=== PATIENT | female | born 1950 | race Caucasian/White ===

== ENCOUNTER 2025-08-05 09:58 | Emergency (ER) | payer MEDICARE, SELFPAY ==
--- NOTE | ~2025-08-05 | CT_ITS ---
EXAMINATION: CT brain wo con DATE: 08/05/2025 11:22 INDICATION: Fall with head injury TECHNIQUE: Computed tomography (CT) of the head was performed without intravenous contrast. Sagittal and coronal reconstructions were performed. The mA was adjusted according to patient size. Iterative reconstruction technique was employed. The dose-length product was 447.35 mGy-cm. COMPARISON: None FINDINGS: Mild left periorbital and preseptal soft tissue swelling, likely posttraumatic contusion. Orbits appear otherwise normal with intact appearing globes and no post septal stranding. No fracture. No acute intracranial hemorrhage, acute infarction or abnormal extra axial fluid collection. There is mild scattered white matter hypoattenuation consistent with chronic small vessel ischemic disease. Ventricles are normal and symmetric. No mass/mass effect. The paranasal sinuses and mastoid air cells are normal. IMPRESSION: 1. Left periorbital and preseptal soft tissue swelling likely secondary to post traumatic contusion. No fracture or acute intracranial process. 2. Mild scattered nonspecific white matter hypoattenuation consistent with chronic small vessel ischemic disease. Reviewed, dictated and finalized at location A. ROPOLOGY LECTURER IMPRESSION: 1. Left periorbital and preseptal soft tissue swelling likely secondary to post traumatic contusion. No fracture or acute intracranial process. 2. 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
--- NOTE | ~2025-08-05 | CT_ITS ---
EXAMINATION: CT cervical spine wo con DATE: 08/05/2025 11:22 INDICATION: Head injury. TECHNIQUE: Computed tomography (CT) of the cervical spine was performed without intravenous contrast. Automated exposure control and iterative reconstruction technique were employed. The dose-length product was 447.35 mGy-cm. COMPARISON: None FINDINGS: C1 ring is ununited posteriorly, a normal variant. There is 9 degrees dextrocurvature of cervical spine. Vertebral body heights are normal. Intervertebral disc heights are normal. There is multilevel severe facet joint osteoarthritis. There is multilevel uncovertebral joint osteoarthritis, severe on the left at C4-C5 and C5-C6. There is multilevel mild neural foraminal stenosis on either side. There is mild central canal stenosis at C6-C7. IMPRESSION: 1. No fracture. 2. Mild cervical spondylosis. Reviewed, dictated and finalized at location E. BPM ARCHITECT
[2025-08-05 10:06] VITALS: BP 129/82; PULSE 67; RESP 20; TEMP 37; O2SAT 100
--- OUTSIDE RECORDS SUMMARY | 2025-08-05 10:23 | XMS_ITS | Data Portability ---
Author Organization [place] [facility], Main Office Address [address] [place] [address] Care Team Providers Care Superintendent Warehouse Name Role Phone PIERO SOSA Primary Care Provider PIERO SOSA Referring Provider [phone] Assessment Encounter Date Assessment Date Assessment LastModified by Organization Details LastModified Time 08/22/2023 08/22/2023 Patient has severe primary osteoarthritis left knee joint. At her request under sterile conditions I injected the patient's left knee joint in the office with 4 cc 0.5% bupivacaine and 20 mg of Kenalog. Patient tolerated the procedure well. We will see her back as needed she voiced understanding agrees above plan she will call for any further problems difficulties or questions. Not available 08/22/2023 10:27:47 11/21/2023 11/21/2023 The patient has severe primary osteoarthritis left knee joint as described. Under sterile conditions I injected the patient's left knee joint in the office with 4 cc 0.5% Marcaine and 20 mg of Kenalog. Patient tolerated the procedure well. I will see her back as needed we can do this again in 3 months if necessary she voiced understanding agrees above plan she will call for any further problems difficulties or questions. Not available 11/21/2023 10:46:43 02/07/2024 02/07/2024 The patient has severe primary osteoarthritis left knee joint as described under sterile conditions I injected the patient's left knee joint in the office with 4 cc of 0.5% Marcaine and 20 mg of Kenalog. Patient tolerated procedure well. I will see her back in 3 months if necessary she voiced understanding and agrees above plan she will call for any further problems difficulties or questions. Not available 02/07/2024 14:35:49 05/08/2024 05/08/2024 The patient has severe primary osteoarthritis left knee joint. She gets by with cortisone she is trying to avoid total knee arthroplasty for now. At her request under sterile conditions I injected the patient's left knee joint in the office with 4 cc of 0.5% bupivacaine and 20 mg of Kenalog. Patient tolerated procedure well. I will see her back again in 3 months if necessary for repeat cortisone injection. She gets by pretty well with cortisone. Her right knee is functioning well 16 years out status post total knee arthroplasty today's x-rays show no new issues with her right knee arthroplasty. I have advised her we should x-ray this every year or 2 to make sure it is maintaining its alignment. She voiced understanding agrees above plan she will call for any further problems difficulties or questions. Not available 05/08/2024 14:59:09 08/09/2024 08/09/2024 The patient has severe primary osteoarthritis left knee joint as described. Under sterile conditions I injected the patient's left knee joint in the office today with 4 cc 0.5% bupivacaine and 20 mg of Kenalog. Patient tolerated procedure well. I will see her back as needed we can do this again in 3 months if necessary. She voiced understanding and agree with the above plan she will continue with current conservative measures and call for any further problems difficulties or questions. Not available 08/09/2024 14:49:26 Plan of Treatment Reminders Order Date Submit Date Provider Last Modified By Organization Details Last Modified Time Details Appointments None recorded. Lab None recorded. Referral None recorded. Procedures injection/a spiration joint/bursa (PROC) 2024 025 [email or web address] In-Office Order, Internal Use Only DO Not Attach Compendium DO Not Attach Compendium, Do Not Delete/merge, [id number] 5 14:33:16 injection/a spiration joint/bursa (PROC) 2023 024 [email or web address] In-Office Order, Internal Use Only DO Not Attach Compendium DO Not Attach Compendium, Do Not Delete/merge, [id number] 14:41:32 injection/a spiration joint/bursa (PROC) - in office procedure, administere d by provider 2023 024 [email or web address] In-Office Order, Internal Use Only DO Not Attach Compendium DO Not Attach Compendium, Do Not Delete/merge, [id number] 4 14:12:13 injection/a spiration joint/bursa (PROC) - in office procedure, administere d by provider 2023 024 [email or web address] In-Office Order, Internal Use Only DO Not Attach Compendium DO Not Attach Compendium, Do Not Delete/merge, 4 10:28:19 injection/a spiration joint/bursa (PROC) 2023 024 [email or web address] In-Office Order, Internal Use Only DO Not Attach Compendium DO Not Attach Compendium, Do Not Delete/merge, 4 10:10:38 Surgeries None recorded. Imaging XR, knee 2023 [address] [facility] [place], [address] [facility] [address] [facility] [address], [place], [address], 4 16:18:33 Medication Orders bupivacaine HCl 0.5 % (5 mg/mL) injection solution 2024 [address]25 [address] [facility] [address], [place], [address], 5 14:50:02 Kenalog 10 mg/mL suspension for injection 2024 025 [address] [facility] [address], [address], [place], [address], 5 14:50:02 bupivacaine HCl 0.5 % (5 mg/mL) injection solution 2023 024 [address] [facility] [address], [address], [place], [address], 4 16:18:33 Kenalog 10 mg/mL suspension for injection 2023 024 [email or web address] [facility] [address], [address], [place], [address], 4 16:18:33 Marcaine (PF) 0.5 % (5 mg/mL) injection solution 2023 [email or web address] [facility] [address], [place], [address], 4 14:36:24 Kenalog 10 mg/mL suspension for injection [email or web address] [place] [address] Pharmacy [address], [address], [place], [address], 4 14:36:19 Marcaine (PF) 0.5 % (5 mg/mL) injection solution 2023 024 [email or web address] [facility] [address], [address], [place], [address], 4 14:36:24 Kenalog 10 mg/mL suspension for injection 2023 024 [email or web address] [facility] [address], [address], [place], [address], 4 14:36:19 bupivacaine HCl 0.5 % (5 mg/mL) injection solution 2023 024 [email or web address] [id number], [address] [place] [address], [address], 4 14:36:13 Kenalog 10 mg/mL suspension for injection 2023 024 [email or web address] [id number], [address], [place], [address], 4 14:36:19 Patient TargetsNo targets recorded. Patient InstructionsNo instructions recorded. Reason for Referral None Reported. Results Created Date Observation Date Name Description Value Unit Range Abnormal Flag Note LastModifiedBy Organization Detail LastModifiedTime 05/08/20 24 XR, knee No observ ation record ed. [email or web address] [facility] [place] [address], [place], [address], 05/08/2024 15:00:37 Result Notes None recorded. 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 Procedure Notes None recorded. Medical Equipment None Reported. Allergies Allergen ID Allergen Name Allergen Category Reaction Reaction Severity Criticality Documentation Date Start Date Code Code System Note Provider Name and Address Organization Details Recorded Time 7250 Product containin g penicilli n (product) medicatio n rash Not available Not available 10/06/2022 41361 8001 SNOMED Not Available [facility] 3 04:58:37 Medications Name Sig Start Date Stop Date Status Note LastModified by Organization Details LastModified Time prednisone 10 mg tablet 12/03 completed Not Available Not Available Not Available doxycycline hyclate 100 mg capsule TAKE 1 CAPSULE BY MOUTH TWICE DAILY FOR 7 DAYS 05/20 completed Not Available Not Available Not Available benzonatate 200 mg capsule TAKE 1 CAPSULE BY MOUTH THREE TIMES DAILY NEEDED FOR COUGH 05/08 completed Not Available Not Available Not Available bupivacaine HCl 0.5 % (5 mg/mL) injection solution Take 20 mg by injection route. 2024 active Not Available Not Available Not Avai lable prednisone 20 mg tablet TAKE 2 TABLETS BY MOUTH ONCE DAILY FOR 5 DAYS 05/08 completed Not Available Not Available Not Available promethazin e 6.25 mg-codeine 10 mg/5 mL syrup TAKE 1-2 TEASPOONF ULS (5-10 ML) BY MOUTH EVERY 6 HOURS NEEDED 12/03 completed Not Available Not Available Not Available Kenalog 10 mg/mL suspension for injection Take 20 mg by injection route. 2024 active NDC: 0003- 0494- 20 Not Available Not Available Not Available benzonatate 100 mg capsule TAKE 1 CAPSULE BY MOUTH THREE TIMES A DAY NEEDED FOR COUGH 08/16 completed Not Available Not Available Not Available Xylocaine 20 mg/mL (2 %) injection solution In office injection administe red by the provider 02/05 completed Not Available Not Available Not Available montelukast 10 mg tablet TAKE 1 TABLET BY MOUTH EVERY DAY AT NIGHT active Not Available Not Available No t Available codeine 10 mg-guaifene sin 100 mg/5 mL oral liquid TAKE 10ML BY MOUTH EVERY 6 HOURS NEEDED 12/03 completed Not Available Not Available Not Available levofloxaci n 500 mg tablet 02/28 completed Not Available Not Available Not Available Ventolin HFA 90 mcg/actuati on aerosol inhaler TAKE 2 PUFFS BY MOUTH EVERY 6 HOURS NEEDED FOR WHEEZE OR FOR SHORTNESS OF BREATH active Not Available Not Available No t Available Marcaine (PF) 0.5 % (5 mg/mL) injection solution Take 20 mg by injection route. 05/08 completed Not Available Not Available Not Available Systane (PF) 0.4 %-0.3 % eye drops in a dropperette active Not Available Not Available Not Available PreserVisio n AREDS active Not Available Not Available Not Available lidocaine (PF) 10 mg/mL (1 %) injection solution In office injection administe red by the provider 02/05 completed NDC: 0409- 4276- 17 Not Available Not Available Not Available lidocaine (PF) 5 mg/mL (0.5 %) injection solution In office injection administe red by the provider 08/16 completed Not Available Not Available Not Available Allergy Relief-D (cetirizine ) 5 mg-120 mg tablet,exte nded release TAKE 1 TABLET BY MOUTH IN THE MORNING FOR 10 DAYS 02/28 completed Not Available Not Available Not Available ropivacaine (PF) 5 mg/mL (0.5 %) injection solution in office 05/08 completed [facility] [phone] -[phone]- [phone] Not Available Not Available Not Available BinaxNOW COVID-19 Ag Self Test kit USE DIRECTED 05/20 completed Not Available Not Available Not Available Paxlovid 300 mg (150 mg x 2)-100 mg tablets in a dose pack PLEASE SEE ATTACHED FOR DETAILED DIRECTION S 08/16 completed Not Available Not Available Not Available Centrum Adult 50 Plus active Not Available Not Available Not Available Vitals Date Recorded Body height Body mass index (BMI) Body weight Provider Name and Address Organization Details Last Updated DateTime 08/09/2024 167.64 cm 43.6 kg/m2 550873.94 g [employer] Shuame 08/09/2024 14:31:14 Date Recorded Body height Body mass index (BMI) Body weight Provider Name and Address Organization Details Last Updated DateTime 08/22/2023 160.02 cm 47.8 kg/m2 944019.94 g [employer], Shuame 08/22/2023 10:09:08 Date Recorded Body height Body mass index (BMI) Body weight Provider Name and Address Organization Details Last Updated DateTime 11/21/2023 160.02 cm 47.8 kg/m2 183148.94 g Evy Crystal [employer] 11/21/2023 10:26:35 Date Recorded Body height Body mass index (BMI) Body weight Provider Name and Address Organization Details Last Updated DateTime 02/07/2024 167.64 cm 42 kg/m2 987037.02 g [employer], 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 12/03/2020 [id number] Information not available 10/06/2022 Sex: Unknown Functional Status Question Answer Note LastModified by Organizat ion Details LastModified Time What is your level of alcohol consumption? Occasional [id number] Information not available 10/06/2022 Mental Status None recorded. Family History Relationship Description Onset Age of this Age Resolved Age Notes LastModified by Organization Details LastModified Time Father Family history of malignant neoplasm [id number] Not available 10/06/2022 04:42:18 Medical History Condition Response BLINDNESS N KIDNEY STONES N MRSA N CARPAL TUNNEL SYNDROME N LUNG DISEASE/DISORDER N HISTORY OF DRUG ABUSE N RADIATION / CHEMOTHERAPY N COPD N SPORTS INJURY N ANKLE PAIN N BLOOD DISEASES N SCHIZOPHRENIA N SHINGLES N BOWEL PROBLEMS N SHOULDER PAIN N DEPRESSION (INCLUDING POST ) N STROKE/TIA N KNEE PAIN N ULCERS N BENIGN PROSTATIC HYPERPLASIA N OBESITY N GERD/NAUSEA N ANEURYSM N URINARY/BLADDER/KIDNEY PROBLEMS N CORONARY ARTERY DISEASE (CAD) N ADDICTION CONCERNS N USE OF BLOOD THINNERS N SKIN PROBLEMS N EMPHYSEMA N MUSCLE,JOINT OR BONE PROBLEMS N DVT N STOMACH ULCERS N BLOOD CLOTS N USE OF NSAIDS N CONCUSSION OR SPINAL TRAUMA N NEUROPATHY N AIDS/HIV N FRACTURES N ELBOW PAIN N HYPERTENSION N TOURETTE'S N ANXIETY DISORDER N Metal allergy N BLOOD TRANSFUSION N ANEMIA/BLOOD DISORDER N BIPOLAR DISORDER N BRONCHITIS N OSTEOARTHRITIS N TUBERCULOSIS N FOOT PROBLEM N HEART VALVE DISORDERS N ALLERGIES/HAYFEVER N SOFT TISSUE INJURY N INFECTIOUS DISEASE N HEART ARRHYTHMIA N INSOMNIA N RHEUMATOID ARTHRITIS N HIGH CHOLESTEROL / HYPERLIPIDEMIA N EDEMA N CHRONIC PAIN SYNDROME N CAROTID BLOCKAGE N BACK / NECK PROBLEMS N HAVE YOU BEEN HOSPITALIZED OR SEEN IN [facility] ER IN THE PAST YEAR ? N BURSITIS N HERNIATED DISC N DIALYSIS N FIBROMYALGIA N OSTEOPOROSIS N ARTHRITIS Y NO SIGNIFICANT PAST MEDICAL HISTORY N PERIPHERAL NEUROPATHY N DIABETES, TYPE N HEARTBURN / REFLUX N HEPATITIS / LIVER DISEASE N GOUT N SLEEP DISORDER N ALZHEIMER'S DISEASE N HERPES N SEIZURES/EPILEPSY N HEADACHES/MIGRAINES N VASCULAR DISEASE N HIP PAIN N Blood Disorder N DIZZINESS N HEAD TRAUMA OR INJURY N HEART DISEASE/HEART PROBLEMS N MULTIPLE SCLEROSIS N CARDIAC ARRHYTHMIA N CANCER: SPECIFY N ANESTHESIA COMPLICATIONS N ATRIAL FIBRILLATION N AUTOIMMUNE DISEASE N Gynecological HistoryNo gynecological history recorded. Obstetrics History GPAL:G 0 P 0 0 0 0 Past Encounters Encounter ID Performer Location Encounter Start Date Encounter Closed Date Diagnosis/Indication Diagnosis SNOMED-CT Code Diagnosis ICD10 Code Diagnosis IMO Codes Diagnosis Note [id number] Elías Broussard MD [facility] [place] [address] [facility] [address] [facility] [address] [place] [address] 12/03/2020 00:00:00 12/03/2020 11:28:20 [id number] Elías Broussard MD [facility] [place] [place] [address] [facility] [address] [place] [address] 03/20/2021 00:00:00 03/20/2021 14:56:59 [id number] Elías Broussard MD [facility] [place] [place] [address] [place] [address] 07/08/2021 00:00:00 07/08/2021 10:03:27 [id number] Elías Broussard MD [facility] [place] [place] [address] [place] [address] 10/28/2021 00:00:00 10/28/2021 16:05:21 [id number] Elías Broussard MD [facility] [place] [place] [address] [place] [address] 02/05/2022 00:00:00 02/05/2022 11:35:43 [id number] Elías Broussard MD [facility] [place] [place] [address] [place] [address] 05/12/2022 00:00:00 05/12/2022 12:05:22 [id number] MD PAPA Milner[facility] [place] [address] [place] [address] 08/16/2022 00:00:00 08/16/2022 15:17:29 [id number] Elías Broussard MD [facility] [place] [place] [address] [place] [address] 11/15/2022 14:43:05 11/15/2022 15:51:56 Osteoarthritis of left knee joint 3637718922 88008 M17.12 [id number] Elías Broussard MD [facility] [place] [address] [place] [address] 02/14/2023 14:21:40 02/14/2023 17:55:18 Osteoarthritis of left knee joint 3791045163 86860 M17.12 [id number] Elías Broussard MD [facility] [place] [address] [place] [address] 05/20/2023 10:22:56 05/20/2023 11:09:40 Osteoarthritis of left knee joint 6033420791 46181 M17.12 [id number] Elías Broussard MD [facility] [place] [address] [place] [address] 08/22/2023 10:05:13 08/22/2023 10:28:18 Osteoarthritis of left knee joint 8855156784 72865 M17.12 [id number] Mario Reagan MD [facility] [place] [address] [place] [address] 11/21/2023 10:20:59 11/21/2023 10:49:34 Osteoarthritis of left knee joint 7516322838 47781 M17.12 Osteoarthritis 492530657 M17.12 [id number] Mario Reagan MD [facility] [place] [address] [place] [address] 02/07/2024 14:03:56 02/07/2024 15:06:07 Osteoarthritis of left knee joint 3992181497 71855 M17.12 Pain of le ft knee joint 5204468431 05411 M25.562 History of right total knee replacement 8105480264 067243 Z96.262 [id number] Mario Reagan MD [facility] [place] [address] [place] [address] 05/08/2024 14:19:26 05/08/2024 14:56:44 Osteoarthritis of left knee joint 9111556642 68832 M17.12 Pain of le ft knee joint 3106872872 98283 M25.562 History of right total knee replacement 3712467695 641905 Z96.667 [id number] MD LINO Shoemaker[facility] [place] [address] [place] [address] 08/09/2024 14:28:12 08/09/2024 14:57:27 Osteoarthritis of left knee joint 6808807914 15190 M17.12 Pain of le ft knee joint 6784750256 92889 M25.562 Health Concerns Section Related Observation LastModified by Organization Detai ls LastModified Time None Recorded Concern Status LastModified by Organization Details LastModified Time None Recorded Advance Directives Directive None Recorded Payers Insurance Date Sequence Insurance Name Policy Number Policy English Covered Member ID English Member ID Guarantor Name 08/09/2024 1 [place] Tejal Arzola [id number] Tejal Arzola 08/08/2024 2 BCBS-ID:ALVIN [facility] [facility] PLAN F (MEDICARE SUPPLEMENT) [id number] Tejal Arzola [id number] Tejal Arzola Notes Date Note Type Note Provider Name and Address Organization Details Recorded Time 08/22/2023 text/html Patient returns complaining of left knee pain. She has chronic primary osteoarthritis she comes in every 3 months for cortisone injections these gave her very good relief for most of the 3 months. She has iuje-fq-tfpi severe lateral osteoarthritis in the knee joint also lacks extension chronically. Denies any new trauma or injury no new symptoms or complaints no erythema effusion or signs of infection she comes in today requesting repeat cortisone injection left knee. Her right knee has been in about 20 years and then looks good and is functioning well for her. TERRI Claudio [address] [facility], [place], [address], [facility] 08/22/2023 10:28:00 11/21/2023 text/html Patient returns with left knee pain she comes in every 3 months for cortisone injections. Despite her severe osteoarthritis she does very well with conservative measures she has not interested in total knee arthroplasty until the shots stop working for her. They last almost exactly 3 months the past few days her knee pain has been about a 6 on a scale 1-10 she has been very busy more active with a nice or whether this is aggravating her left knee. She does have valgus deformity and wwcq-tn-qtfd changes lateral compartment. She would like another shot of cortisone today. Denies any new trauma or injury no new symptoms or complaints no erythema effusion or signs of infection. TERRI Claudio [address], [place], [address], [employer] [facility] [employer] 11/21/2023 10:46:54 02/07/2024 text/html Patient returns for recheck of her left knee she has severe primary osteoarthritis with wkcx-ow-qoyx changes in the lateral compartment with valgus deformity. She has had her right knee replaced she is very pleased with this she is trying to get by with conservative measures on the left knee she states shot of cortisone gave her nearly 3 months of relief every time. It has been 3 months since her last injection she would like another 1 today. Denies any new problems with the knee no effusion or swelling no erythema heat or other signs of infection. TERRI Claudio [address], [place], [address], [employer] [facility] [employer] 02/07/2024 14:36:12 05/08/2024 text/html patient returns for recheck of her left knee. She has severe primary osteoarthritis with injh-vt-pjdl changes lateral compartment we are getting new updated x-rays today it has been more than a year since her last x-rays. She comes in every few months for cortisone injections denies any new problems with the knee the shot of cortisone gave her about 3 months relief lately her knee pain has really started to flare up again. She knows that at some point she is going to need total knee arthroplasty she is trying to put this off for awhile she has had a previous right total knee arthroplasty done 16 years ago and is very pleased with this it is functioning well for her. We will get updated x-rays of that knee as well today to make sure everything looks good with her implant. She denies any new trauma or injury no erythema effusion or signs of infection. New past medical history sheet was reviewed and signed on the intake sheet of today's date drug allergies current medications family social history previous surgical history 10 point review of systems was reviewed and discussed in detail today with the patient. TERRI Claudio [address], [address], [place], [address], [employer] 05/08/2024 15:14:58 08/09/2024 text/html the patient returns requesting a cortisone injection into the left knee it has been 3 months since her last cortisone injection it worked very well for her. She has severe primary osteoarthritis with ukvx-ca-bkos changes lateral compartment and mild valgus deformity. She lacks about 10 of extension and limps because her knee pain bothers her. X-rays done 3 months ago show krif-fk-mfst changes lateral compartment and significant narrowing of the patellofemoral articulation as well. She has a right total knee arthroplasty done about 14 years ago and states this is doing well for her no problems here. She denies any new problems with the left knee no trauma or injury no effusion or swelling. TERRI Claudio [address], [place], [address], [employer] 08/09/2024 14:49:49 OBGyn Episode No OBEpisode recorded.
--- OUTSIDE RECORDS SUMMARY | 2025-08-05 10:23 | XMS_ITS | Encounter Summary ---
Author Organization [facility] Healthcare Address [address] [place] [address] Care Team Providers Care Drier Belt Conveyor Name Role Phone Karrie Garcia MD Primary Care Provider Encounter Details Date Type Department Care Team (Late st Contact Info) Description 06/11/2025 Results Follow-Up [facility] Primary Care [address] [place] [phone] Karrie Garcia MD [address] [place] [phone] Hemoglobin A1c, Lipid panel, Comprehensive metabolic panel, Additional followed-up results: 3 Social History Tobacco Use Types Packs/Day Years Used Date Smoking Tobacco: Never AUDIT-C Answer Date Recorded Q1: How often do you have a drink containing alc ohol? 2-4 times a month 06/02/2023 Q2: How many drinks containi ng alcohol do you have on a typical day when you are drinking? 1 or 2 06/02/2023 Q3: How often do you have si x or more drinks on one occasion? 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
--- OUTSIDE RECORDS SUMMARY | 2025-08-05 10:23 | XMS_ITS | Clinical Summary ---
Author Organization [facility] Address [facility] [place] [address] Care Team Providers Care Programmer Developer Name Role Phone Unavailable Primary Care Provider Unavailabl e Social History Tobacco Use Types Packs/Day Years Used Date Smoking Tobacco: Never Assessed Comments Unknown Sex and Gender Information Value Date Recorded Sex Assigned at Not on file Legal Sex Female 6:25 PM CDT Gender Identity Not on file Sexual Orientation Not on file Last Filed Vital Signs Vital Sign Reading Time Taken Comments Blood Pressure 120/64 02/05/2013 11:37 AM CDT Pulse 81 02/05/2013 11:37 AM CDT Temperature - - Respiratory Rate - - Oxygen Saturation - - Inhaled Oxygen Concentration - - Weight 133.8 kg (295 lb) 02/05/2013 11:37 AM CDT Height 170.2 cm (5' 7) 02/05/2013 11:37 AM CDT Body Mass Index 46.2 02/05/2013 11:37 AM CDT Plan of Treatment Health Maintenance Due Date Last Done Comments Colorectal Cancer Screening Colonoscopy (10 Years) 1950 Hepatitis C 1970 DTaP, Tdap and Td Vaccines ( 1 - Tdap) 07/10/2023 07/09/2023 COVID-19 Vaccine ( - 2024-2 6 season) 2025 Influenza Adult (#1) 2025 06/04/2024 Mammogram Screening 09/06/2026 09/06/2024 RSV Immunization or 60+ Years (1 - 1-dose 75+ series) 2027 Dexa Scan (General) Completed 12/03/2021, 12/03/2021 Zoster Vaccines Completed 05/11/2023, 02/01/2023 Pneumococcal Vaccine: 50+ Years Completed 06/02/2023, 11/13/2021 Hepatitis A Vaccines Aged Out No long er eligible based on patient's age to complete this topic Meningococcal B Vaccine Aged Out No l onger eligible based on patient's age to complete this topic Meningococcal Vaccine Aged Out No isidro orsita eligible based on patient's age to complete this topic RSV Immunizations Under 20 Months Aged Out No longer eligible b ased on patient's age to complete this topic
--- OUTSIDE RECORDS SUMMARY | 2025-08-05 10:23 | XMS_ITS | Clinical Summary ---
Author Organization [facility] [address] [place] [address] Care Team Providers Care Canvas Shrinker Name Role Phone Karrie Garcia MD Primary Care Provider Allergies Active Allergy Reactions Criticality Noted Date Comments Penicillins Rash Medium 11/13/2021 Azithromycin Rash Medium 11/13/2021 Medications vit C,O-Dg-ydgto-silvestre tein-zeaxan 250-90-40-1 mg capsule Take by mouth Active multivitamin capsule Take 1 capsule by mouth daily Active artificial tears (SYSTANE) 0.3 % gel Apply to both eyes Active vit A/vit C/vit E/zinc/copper (PRESERVISION AREDS ORAL) Active montelukast (SINGULAIR) 10 mg tablet Take 1 tablet (10 mg total) by mouth nightly 90 tablet 3 5 Active albuterol HFA (PROVENTIL HFA,VENTOLIN HFA,PROAIR HFA) 90 mcg/actuation inhalerIndicati ons:Bronchitis INHALE 2 PUFFS BY MOUTH EVERY 6 HOURS NEEDED FOR WHEEZING OR SHORTNESS OF BREATH 18 g 5 Active benzonatate (TESSALON) 100 mg capsuleIndicati ons:Cough Take 1 capsule (100 mg total) by mouth 3 (three) times a day as needed for cough 42 capsule 5 Active Active Problems Problem Noted Date Diagnosed Date Infected cyst of skin 10/31/2024 Osteoarthritis 11/13/2021 Encounters Date Type Department Care Team Description 06/11/2025 9:10 AM HEAD OF MARKETING Lab [facility] Office Building [address] [place] [id number] Need for hepatitis B screening test; Abnormal blood sugar; Routine general medical examination at a health care facility; Morbid (severe) obesity due to excess calories (HCC) 06/11/2025 8:30 AM HEAD OF MARKETING Office Visit [address] [phone] Karrie Garcia MD Routine general medical examination at a health care facility (Primary Dx); Need for vaccination; Encounter for screening mammogram for malignant neoplasm of breast; Post-menopausal; Need for hepatitis B screening test; Abnormal blood sugar; Morbid (severe) obesity due to excess calories (HCC); Morbid obesity with body mass index (BMI) of 40.0 to 44.9 in adult (HCC) 06/11/2025 Results Follow-Up [address] [phone] Karrie Garcia MD Hemoglobin A1c, Lipid panel, Comprehensive metabolic panel, Additional followed-up results: 3 05/23/2025 1:30 PM CDT Office Visit [address] [phone] Madison Bowden NP Acute bronchitis due to other specified organisms (Primary Dx); Morbid obesity with BMI of 40.0-44.9, adult (HCC) 05/18/2025 10:15 AM CDT Office Visit [facility] Care at [address] [phone] Evy Del Cid PA Nasopharyngitis (Primary Dx) from Last 3 Months Immunizations Immunization Administration Dates Next Due Influenza, Quad, Adjuvantate d, Intramuscular 05/13/2022 Influenza, Quadrivalent, Hig h Dose, Preservative Free, Intrr 06/02/2023,05/04/2021,05/23/2020 Influenza, Trivalent, High D ose, Split, Preservative Free, Intramuscular 06/11/2025,06/04/2024 Influenza, Unspecified 05/23/2025(Deferr ed: Patient ill today) Pneumococcal Conjugate PCV 13 11/13/2021 Pneumococcal Conjugate Pcv20 06/02/2023 Td, adsorbed 07/09/2023 ZOSTER Recombinant 05/11/2023,02/01/2023 Surgical History Surgery Date Site/Laterality Comments TOTAL KNEE ARTHROPLASTY 08/08/2007 - 08/07/2008 TONSILLECTOMY 08/08/1957 - 08/07/1958 JOINT REPLACEMENT knee replacement 12/04/2007 Family History Medical History Relation Name Comments Cancer Father Mati Arzola sepsis Father Mati Arzola blockage Mother Heart defect Sister Relation Name Status Comments Father Mati Arzola Mother Sister Social History Tobacco Use Types Packs/Day Years Used Date Smoking Tobacco: Never Tobacco Cessation:Counseling Given: Not Answered AUDIT-C Answer Date Recorded Q1: How often [...] on file Legal Sex Female 9:39 AM HEAD OF MARKETING Gender Identity Not on file Sexual Orientation Not on file Obstetrics History Para Term AB IAB SAB Ectopic Multiple Livin g Live Births 0 0 0 0 0 0 0 0 0 0 0 Last Filed Vital Signs Vital Sign Reading Time Taken Comments Blood Pressure 124/72 06/11/2025 8:35 AM HEAD OF MARKETING Pulse 75 06/11/2025 8:35 AM [employer] OF MARKETING Temperature 36.2 C (97.2 F) 06/11/2025 8:35 AM HEAD OF MARKETING Respiratory Rate 18 05/18/2025 10:08 AM CDT Oxygen Saturation 99% 06/11/2025 8:35 AM [employer] OF MARKETING Inhaled Oxygen Concentration - - Weight 121.1 kg (267 lb) 06/11/2025 8:35 AM HEAD OF MARKETING Height 167.6 cm (5' 6) 06/11/2025 8:35 AM HEAD OF MARKETING Body Mass Index 43.09 06/11/2025 8:35 AM HEAD OF MARKETING Plan of Treatment Health Maintenance Due Date Last Done Comments DTaP/Tdap/Td Vaccine (1 - Tdap) 07/10/2023 Osteoporosis Screening-Bone Density Scan 12/04/2023 12/03/2021 Covid-19 Vaccine (7 - 2024-2 6 season) 2025 07/06/2024, 05/13/2022, 12/18/2021, Additional history exists Breast Cancer Screening-Mammogram 09/06/2025 09/06/2024, 08/17/2023, 01/28/2022 Depression Screening 06/11/2026 06/11/2025, 05/23/2025, 11/12/2024, Additional history exists Fall Risk Assessment 06/11/2026 06/11/2025, 06/04/2024, 06/02/2023, Additional history exists Well Visit 65+ 06/11/2026 06/11/2025, 05/09, 06/02/2023, Additional history exists Colon Cancer Screening-DNA Stool 12/11/2027 12/10/2024, 11/29/2021, 11/27/2021 Zoster Vaccine Completed 05/11/2023, 02/01/2023 Hepatitis C Screening Completed 06/02/2023 Pneumococcal vaccine 65+ Completed 06/02/2023, 04/0 03/2022 Hepatitis B Screening Completed 06/11/2025 Influenza Vaccine Completed 06/11/2025, , 06/02/2023, Additional history exists Procedures Procedure Name Priority Date/Time Associated Diagnosis Comments EGFR Routine 06/11/2025 9:39 AM [employer] OF MARKETING Routine general medical examination at a health care facility Abnormal blood sugar DIFFERENTIAL AUTO Routine 06/11/2025 9:3 9 AM [employer] OF MARKETING Routine general medical examination at a health care facility CBC WITH AUTO DIFFERENTIAL Routine 06/11/2025 9:39 AM [employer] OF MARKETING Routine general medical examination at a [facility] care facility COMPREHENSIVE METABOLIC PANEL Routine 06/11/2025 9:39 AM [employer] OF MARKETING Routine general medical examination at a health care facility Abnormal blood sugar LIPID PANEL Routine 06/11/2025 9:39 AM HEAD OF MARKETING Routine general medical examination at a health care facility Abnormal blood sugar Morbid (severe) obesity due to excess calories (HCC) HEMOGLOBIN A1C Routine 06/11/2025 9:39 AM [employer] OF MARKETING Abnormal blood sugar HEPATITIS B CORE ANTIBODY, TOTAL Routine 06/11/2025 9:39 AM HEAD OF MARKETING Need for hepatitis B screening test HEPATITIS B SURFACE ANTIBODY (IMMUNE STATUS) Routine 06/11/2025 9:39 AM HEAD OF MARKETING Need for hepatitis B screening test HEPATITIS B SURFACE ANTIGEN Routine 06/11/2025 9:39 AM HEAD OF MARKETING Need for hepatitis B screening test POC INFLUENZA A/B, COVID-19 ANTIGEN Routine 05/18/2025 10:32 AM CDT Nasopharyngitis POCT RAPID STREP Routine 05/18/2025 10:2 4 AM CDT Nasopharyngitis STOOL DNA COLOGUARD Routine 12/10/2024 9:05 AM CDT Screening for colon cancer SCREENING MAMMOGRAM BILATERAL W CLARKE Schedule Routine, Read Routine (OP Routine) 09/06/2024 1:56 PM [employer] OF MARKETING Encounter for screening mammogram for malignant neoplasm of breast HEPATITIS C ANTIBODY Routine 06/02/2023 10:24 AM CDT Need for hepatitis C screening test DEXA AXIAL SKELETON BONE DENSITY 1 OR MORE SITES Schedule Routine, Read Routine (OP Routine) 12/03/2021 1:45 PM CDT Screening for osteoporosis Age-related osteoporosis without current pathological fracture from Last 3 Months or Most Recently Relevant to Health Maintenance Results * eGFR (06/11/2025 9:39 AM HEAD OF MARKETING) eGFR 85 >=60 mL/min/1. 73 m2 Comment: Interpretive Data Reference Interval Normal >/= 90 mL/min/1.73m2 Mildly decreased* 60 - 89 mL/min/1.73m2 Mildly to moderately decreased 45 - 59 mL/min/1.73m2 Moderately to severely decreased 30 - 44 mL/min/1.73m2 Severely decreased 15 - 29 mL/min/1.73m2 Kidney Failure < 15 mL/min/1.73m2 *Relative to young adult level Estimated glomerular filtration rate is determined by the 2020 CKD-EPI equation recommended by the National Kidney Foundation (A Unifying Approach to GFR Estimation: Recommendations of the NKF-ASK Task Force on Reassessing the Inclusion of Race in Diagnosing Kidney Disease, JASN 2020). The CKD-EPI equation should not be used for patients with unstable renal function and has not been validated in children and those over 70. Current interpretive data was last reviewed 2021. Testing performed by: [address] [address] Blood 06/11/2025 9:39 AM [employer] OF MARKETING 06/11/2025 11:41 AM HEAD OF MARKETING us Karrie Garcia MD LAB BLOOD ORD ERABLES Final Result DAVID [address] [facility] [place] [address] * Differential, auto (06/11/2025 9:39 AM HEAD OF MARKETING) Neutrophil abs 3.46 1.50 - 6.50 K/cumm Comment:Testing performed by : [address] [address] Imm gran abs 0.02 0.00 - 0.10 K/cumm DAVID Comment:Testing performed by : [address] [address] Lymphocyte abs 1.22 0.80 - 3.30 K/cumm DAVID Comment:Testing performed by : [address] [address] Monocyte abs 0.71 0.20 - 0.80 K/cumm DAVID Comment:Testing performed by : [address] [address] Eosinophil abs 0.22 0.00 - 0.50 K/cumm DAVID Comment:Testing performed by : [address] [address] Basophil abs 0.05 0.00 - 0.10 K/cumm [facility] Comment:Testing performed by : [address] [address] Neutrophil pct 60.8 % [facility] Comment: Interpretive Data Percent cell count reference ranges are not reported, since discordance with absolute values may lead to misinterpretation of CBC data. Current Interpretive Data was last revised on 2017. Testing performed by: [address] [address] Imm gran pct 0.4 % [facility] Comment: Interpretive Data Percent cell count reference ranges are not reported, since discordance with absolute values may lead to misinterpretation of CBC data. Current Interpretive Data was last revised on 2017. Testing performed by: [address] [address] Lymphocyte pct 21.5 % [facility] Comment: Interpretive Data Percent cell count reference ranges are not reported, since discordance with absolute values may lead to misinterpretation of CBC data. Current Interpretive Data was last revised on 2017. Testing performed by: [address] [address] Monocyte pct 12.5 % [facility] Comment: Interpretive Data Percent cell count reference ranges are not reported, since discordance with absolute values may lead to misinterpretation of CBC data. Current Interpretive Data was last revised on 2017. Testing performed by: [address] [address] Eosinophil pct 3.9 % [facility] Comment: Interpretive Data Percent cell count reference ranges are not reported, since discordance with absolute values may lead to misinterpretation of CBC data. Current Interpretive Data was last revised on 2017. Testing performed by: [address] [address] Basophil pct 0.9 % [facility] Comment: Interpretive Data Percent cell count reference ranges are not reported, since discordance with absolute values may lead to misinterpretation of CBC data. Current Interpretive Data was last revised on 2017. Testing performed by: [address] [address] Blood 06/11/2025 9:39 AM [employer] OF MARKETING 06/11/2025 11:43 AM [employer] OF MARKETING us Karrie Garcia MD LAB BLOOD ORD ERABLES Final Result [facility] [address] [facility] [place] [address] * CBC with auto differential (06/11/2025 9:39 AM HEAD OF MARKETING) WBC 5.68 3.80 - 9.90 K/cumm Comment:Testing performed by : [address] [address] Hgb 12.8 11.9 - 15.5 g/dL DAVID Comment:Testing performed by : [address] [address] Hct 39.3 35.6 - 45.5 % DAVID Comment:Testing performed by : [address] [address] Plt 237 150 - 400 K/cumm DAVID Comment:Testing performed by : [address] [address] MPV 12.0 9.1 - 12.3 fL DAVID Comment:Testing performed by : [address] [address] RBC 4.22 3.90 - 5.20 M/cumm DAVID PORTER Comment:Testing performed by : [address] [address] MCV 93.1 81.3 - 96.4 fL DAVID Comment:Testing performed by : [address] [address] MCH 30.3 27.1 - 33.3 pg DAVID PORTER Comment:Testing performed by : [facility], [address] [place] [address]., [address] MCHC 32.6 32.3 - 35.7 g/dL DAVID PORTER Comment:Testing performed by : [address] [address] RDW CV 13.7 11.1 - 14.9 % DAVID PORTER Comment:Testing performed by : [address] [address] RDW SD 46.5 35.7 - 48.1 fL DAVID PORTER Comment:Testing performed by : [address] [address] NRBC abs 0.00 0.00 - 0.01 K/cumm DAVID PORTER Comment:Testing performed by : [address] [address] Blood 06/11/2025 9:39 AM [employer] OF MARKETING 06/11/2025 11:43 AM [employer] OF MARKETING us Karrie Garcia MD LAB BLOOD ORD ERABLES Final Result Performing Organization Address City/[facility]/ZIP Co de Phone Number DAVID [facility] [address] * Hepatitis B core antibody, total Blood (06/11/2025 9:39 AM HEAD OF MARKETING) Hep B core IgG/IgM Nonreactive Nonreactive Comment:Testing performed by : [facility], [address] [facility] [place]., [address] Blood 06/11/2025 9:39 AM [employer] OF MARKETING 06/11/2025 1:31 PM [employer] OF MARKETING Karrie Garcia MD LAB M ICROBIOLOGY - GENERAL ORDERABLES Final Result DAVID [address] [facility] [address] * Hepatitis B surface antibody (immune status) Blood (06/11/2025 9:39 AM [employer] OF MARKETING) HBsAb (immune status) Nonreactive Comment: Interpretive Data Nonreactive: This result is consistent with a lack of immunity to Hepatitis B Virus when used in the setting of routine screening. Equivocal: The immune status of the individual should be further assessed, if appropriate, after consideration of clinical status, risk factors, and additional diagnostic information. Reactive: This result is consistent with immunity to Hepatitis B Virus when used in the setting of routine screening. Current interpretive data was last revised on 19. Blood 06/11/2025 9:39 AM [employer] OF MARKETING 06/11/2025 12:25 PM [employer] OF MARKETING Karrie Garcia MD LAB M ICROBIOLOGY - GENERAL ORDERABLES Final Result Performing Organization Address [facility] Co de Phone Number [address] [employer] [place] [address] * Hepatitis B Surface Antigen Blood (06/11/2025 9:39 AM HEAD OF MARKETING) [facility] HepBsAg Nonreactive Nonreactive Blood 06/11/2025 9:39 AM HEAD OF MARKETING 06/11/2025 12:25 PM HEAD OF MARKETING Karrie Garcia MD LAB M [facility] - GENERAL ORDERABLES Final Result Performing Organization Address [facility] Co de Phone Number [address] [address] * (ABNORMAL) Hemoglobin A1c (06/11/2025 9:39 AM HEAD OF MARKETING) [facility] Hgb A1C 5.8(H) 4.0 - 5.6 % Comment:Testing performed by : [facility], [address] [place] [address]., [address] Estimated Average Glucose 120 mg/dL DAVID Comment: The ADA recommends reporting an estimated Average Glucose (eAG) with all Hemoglobin A1c results using the equation derived from a study of 507 normal and diabetic adults. Minority populations were underrepresented and children were not included. (Diabetes Care 31:5550-5824, 2008). The eAG is not equivalent to a fasting glucose. Testing performed by: [address] [address] Blood 06/11/2025 9:39 AM [employer] OF MARKETING 06/11/2025 11:43 AM HEAD OF MARKETING us Karrie Garica MD LAB BLOOD ORD ERABLES Final Result DAVID [address] [facility] [place] [address] * Lipid panel (06/11/2025 9:39 AM HEAD OF MARKETING) Cholesterol 185 30 - 199 mg/dL Comment: Interpretive Data Ages < or = 19 years Acceptable: <170 mg/dL Borderline high: 170-199 mg/dL High: >or= 200 mg/dL Ages > or = 20 years Desirable: <200 mg/dL Borderline high: 200-239 mg/dL High: >or= 240 mg/dL Literature References: 1. Expert Panel on Integrated Guidelines for Cardiovascular Health and Risk Reduction in Children and Adolescents. Pediatrics 2011;128:S213 2. NCEP Expert Panel. Circulation 2004;110:227 Current Interpretive Data was last revised on 2018. Testing performed by: [address] [address] Triglycerides 102 <=149 mg/dL DAVID PORTER Comment: Interpretive Data Ages < or = 9 years Acceptable: <75 mg/dL Borderline high: 75-99 mg/dL High: >or= 100 mg/dL Ages 10 to 20 years Acceptable: <90 mg/dL Borderline high: 90-129 mg/dL High: >or= 130 mg/dL Ages > or = 20 years Desirable: <150 mg/dL Borderline high: 150-199 mg/dL High: 200-499 mg/dL Very high: >or= 499 mg/dL Literature References: 1. Expert Panel on Integrated Guidelines for Cardiovascular Health and Risk Reduction in Children and Adolescents. Pediatrics 2011;128:S213 2. NCEP Expert Panel. Circulation 2004;110:227 Current Interpretive Data was last revised on 2018. Testing performed by: [address] [address] HDL 59 >=40 mg/dL DAVID Comment: Interpretive Data Ages < or = 19 years Acceptable: >45 mg/dL Borderline low: 40-45 mg/dL Low: <40 mg/dL Ages > or = 20 years Desirable: >or= 60 mg/dL Low: <40 mg/dL Literature References: 1. Expert Panel on Integrated Guidelines for Cardiovascular Health and Risk Reduction in Children and Adolescents. Pediatrics 2011;128:S213 2. NCEP Expert Panel. Circulation 2004;110:227 Current Interpretive Data was last revised on 2018. Testing performed by: [address] [address] LDL, calculated 108 <=129 mg/dL DAVID Comment: Interpretive Data Ages < or = 19 years Acceptable: <110 mg/dL Borderline high: 110-129 mg/dL High: >or= 130 mg/dL Ages > or = 20 years Optimal: <100 mg/dL Near optimal: 100-129 mg/dL Borderline high: 130-159 mg/dL High: >160 mg/dL Calculated using the Zacarias LDL-C estimating equation. This equation was implemented on 2024. Prior to this date LDL-C was estimated using the Friedewald equation. Literature References: 1. Expert Panel on Integrated Guidelines for Cardiovascular Health and Risk Reduction in Children and Adolescents. Pediatrics 2011;128:S213 2. NCEP Expert Panel. Circulation 2004;110:227 3. Zacarias Valente et al. ENRIKE Cardiol. 2019December 06;5(5):540-548. doi: 10.1001/[email or web address].2020.0013 Current Interpretive Data was last revised on 2024. Testing performed by: [address] [address] Non-HDL Cholesterol 126 mg/dL DAVID Comment: Interpretive Data Ages < or = 19 years Acceptable: <120 mg/dL Borderline high: 120-144 mg/dL High: >145 mg/dL Ages > or = 20 years When triglycerides are >200 mg/dL, Non-HDL cholesterol is a secondary target of therapy with treatment goals that are 30 mg/dL greater than the LDL cholesterol target. Literature References: 1. Expert Panel on Integrated Guidelines for Cardiovascular Health and Risk Reduction in Children and Adolescents. Pediatrics 2011;128:S213 2. NCEP Expert Panel. Circulation 2004;110:227 Current Interpretive Data was last revised on 2018. Testing performed by: [address] [address] Chol/HDL ratio 3 DAVID Comment:Testing performed by : [address] [address] Blood 06/11/2025 9:39 AM [employer] OF MARKETING 06/11/2025 11:41 AM [employer] OF MARKETING us Karrie Garcia MD LAB BLOOD ORD ERABLES Final Result DAVID [address] [facility] Department [place] [address] * Comprehensive metabolic panel (06/11/2025 9:39 AM [employer] OF MARKETING) Sodium 140 135 - 145 mmol/L Comment:Testing performed by : [address] [address] Potassium, pl 4.4 3.3 - 4.9 mmol/L DAVID Comment:Testing performed by : [address] [address] Chloride 105 97 - 110 mmol/L DAVID Comment:Testing performed by : [address] [address] CO2 27 22 - 32 mmol/L DAVID Comment:Testing performed by : [address] [address] Anion gap 8 2 - 15 mmol/L DAVID Comment:Testing performed by : [address] [address] BUN 20 6 - 25 mg/dL DAVID Comment:Testing performed by : [address] [address] Creatinine 0.74 0.60 - 1.10 mg/dL DAVID Comment:Testing performed by : [address] [address] Glucose 102 70 - 199 mg/dL DAVID Comment: Interpretive Data Fasting glucose >/= 126 mg/dl is diagnostic for diabetes. Fasting is defined as no caloric intake for at least 8 hours. Fasting glucose between 100 mg/dl to 125 mg/dl is diagnostic of prediabetes. In a patient with classic symptoms of hyperglycemia or hyperglycemic crisis, a random glucose >/= 200 mg/dl is diagnostic for diabetes. In the absence of unequivocal hyperglycemia, results should be confirmed by repeat testing. The classification and Diagnosis of Diabetes Diabetes Care 2021; 46: S19-S40. Current interpretive data was last revised 2022. Testing performed by: [address] [address] Calcium 9.5 8.5 - 10.3 mg/dL DAVID Comment:Testing performed by : [address] [address] Bilirubin, total 0.4 0.1 - 1.2 mg/dL DAVID Comment:Testing performed by : [address] [address] Protein, pl 6.7 6.5 - 8.5 g/dL DAVID Comment:Testing performed by : [address] [address] Albumin 3.7 3.5 - 5.0 g/dL DAVID Comment:Testing performed by : [address] [address] Alk phos 87 40 - 130 Units/L DAVID Comment:Testing performed by : [address] [address] ALT 15 7 - 45 Units/L DAVID Comment:Testing performed by : [address] [address] AST 30 10 - 45 Units/L DAVID Comment:Testing performed by : [address] [address] Blood 06/11/2025 9:39 AM [employer] OF MARKETING 06/11/2025 11:41 AM [employer] OF MARKETING us Karrie Garcia MD LAB BLOOD ORD ERABLES Final Result DAVID [address] [facility] Department [place] [address] * POC Influenza A/B, COVID-19 antigen (05/18/2025 10:32 AM CDT) Influenza A Ag, POC Negative Negative [facility] Influenza B Ag, POC Negative Negative [facility] COVID-19 Ag POC Presumptive Negative Presumptive Negative, Invalid [facility] Nasal 05/18/2025 10:3 2 AM CDT Evy MURRAY POINT OF CARE TEST ORDER PATRICK Final Result Performing Organization Address City/[facility]/ZIP Co de Phone Number [facility] EDW [address] [place] [address] * POCT rapid strep A (05/18/2025 10:24 AM CDT) Pathologist [facility] Rapid Strep A, POC Negative Negative Swab 05/18/2025 10:2 4 AM CDT Evy MURRAY POINT OF CARE TEST ORDER PATRICK Final Result * (ABNORMAL) Stool DNA - Cologuard (12/10/2024 9:05 AM CDT) Pathologist [facility] Stool DNA - Cologuard Positive( A) Negative [employer] (CLIA #:[id number]) Comment: The Cologuard Plus (TM) test was performed on this specimen. POSITIVE TEST RESULT. A positive (abnormal) Cologuard Plus result means the patient has a [id number]-szytsrw chance of having colorectal cancer (CRC) or precancer (polyps or lesions that could become cancer). The normal value (reference range) for this assay is negative. A positive result should be followed by a colonoscopy to locate and confirm the presence of cancer or precancer. A positive Cologuard Plus result is not a cancer diagnosis. The federal government now considers the colonoscopy following a positive Cologuard Plus test result a covered preventive service. Call for more information. A clinical validation study measured the effectiveness of the Cologuard Plus test. Out of 100 patients testing positive: approximately 3 patients will have CRC; 34 patients will have advanced precancer; 33 will have a non-advanced precancer; and 30 will have no cancer or precancer. TEST DESCRIPTION: The Cologuard Plus test is a multi-target stool DNA (mt-sDNA) test that analyzes DNA and hemoglobin biomarkers in stool. It uses a proprietary algorithm to qualitatively detect CRC and advanced precancer. It is FDA-approved and indicated for use in adults 45 years or older at average risk for CRC. A positive (abnormal) result should be followed by a colonoscopy. Patients with a negative (normal) result should screen again in 3 years. False positive and false negative results may occur. The USPSTF recommends the Cologuard test as a CRC screening option. Their modeling estimates that screening with the test every 3 years from ages 45-85 could prevent up to 73% of CRC and avoid up to 85% of CRC deaths. A 18,911-patient clinical trial found the Cologuard Plus test effectively detects CRC and precancer. The study found the test was 95% sensitive for CRC, 43% sensitive for advanced precancer, and had a 91% specificity (Cologuard Plus Clinician Brochure. [employer]. [place], [place].). Visit www.[employer]/about/zqludnsn-atqzcxgseeh-rrjkyiqfytm for more test information, references, warnings, and precautions. Stool 12/10/2024 9:05 AM CDT 12/11/2024 9:31 AM CDT us Madison Bowden NP LAB BODY FLUIDS AND STOOLS ORDERABLES Final Result [employer] (CLIA #:[id number]) [address] [id number] * Screening Mammogram Bilateral W Clarke (09/06/2024 1:56 PM HEAD OF MARKETING) Anatomical Region Laterality Modality Breast Bilateral Mammography Impressions 09/06/2024 2:06 PM HEAD OF MARKETING BI-RADS ATLAS category (overall): 1 - Negative There is no mammographic evidence of malignancy. A 1 year screening mammogram is recommended. The patient has been or will be contacted. We recommend annual screening mammography for women at average risk of breast cancer beginning at age 40, based on guidelines of the [employer] (ACR Practice Parameter for the Performance of Screening and Diagnostic Mammography) and [employer]. For women with and elevated risk of breast cancer, please refer to the ACR Practice Parameter for specific screening recommendations. The patient will be entered into a reminder system with a target due date of 1 year for her next screening exam. 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 2D digital mammographic views, as well as 3D digital tomosynthesis were performed in the CC and MLO projections. This study was resulted using Computer-Aided Detection (CAD). CLINICAL: Encounter for screening mammogram for malignant neoplasm of breast (Due in August). No relevant medical history has been documented for this patient. No known family history of breast cancer. COMPARISONS: 08/17/2023 Screening Mammogram Bilateral W Clarke 01/28/2022 Screening Mammogram Bilateral W Clarke BREAST TISSUE: The breasts are almost entirely fatty. FINDINGS: No suspicious masses, suspicious calcifications, or other suspicious findings are seen within either breast. There has been no suspicious change. Madison Bowden NP IM MAMMO PROCEDURES Final Result * Hepatitis C antibody Blood (06/02/2023 10:24 AM CDT) Hep C Ab Nonreactive Nonreactive DAVID PORTER Comment: Interpretive Data Nonreactive: Antibodies to HCV not detected. Does NOT exclude the possibility of recent exposure to HCV. Equivocal: Equivocal for HCV antibodies. Supplemental molecular testing will be automatically performed to determine infection status in accordance with current CDC screening recommendations. Reactive: Positive for HCV antibodies. This may represent current or past HCV infection. Supplemental molecular testing will be automatically performed to determine current infection status in accordance with current CDC screening recommendations. Interpretive data was last revised on 2019. Blood 06/02/2023 10:2 4 AM CDT 06/02/2023 12:37 PM CDT Karrie Garcia MD LAB M ICROBIOLOGY - GENERAL ORDERABLES Final Result Performing Organization Address City/State/ZIP Co ms Phone Number DAVID [phone] [facility] [place] [place] [address] * Dexa Axial Skeleton Bone Density 1 or 2 Site (12/03/2021 1:45 PM CDT) Anatomical Region Laterality Modality Body N/A Mammography 12/03/2021 2:26 PM CDT Narrative 12/03/2021 2:26 PM CDT EXAM DESCRIPTION: DEXA AXIAL SKELETON BONE DENSITY 1 OR MORE SITES REASON FOR STUDY: 71 y/o year old F with given history of screening. 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 FINDINGS: AP LUMBAR SPINE L1-L4: Total BMD is 1.327 g/cm2 T-score is 2.5 Measured BMD is thought to be spuriously elevated due to facet arthropathy. LEFT HIP: Total BMD is 0.913 g/cm2 T-score is -0.2 Femoral neck BMD is 0.814 g/cm2 T-score is -0.3 IMPRESSION: Normal REFERENCE: Bone mineral density: Normal (T-score above or = -1.0) Low bone mass (T-score between -1.0 and -2.5) replaces the previously used term osteopenia Osteoporosis (T-score = or below -2.5) Medical evaluation for secondary causes of low bone mineral density may be appropriate. FRAX is a World Health Organization validated fracture risk assessment tool that calculates a person's 10 year probability of a major osteoporosis related fracture and hip fracture. According to the National Osteoporosis Foundation guidelines, postmenopausal women and men age 50 or older with low bone mass and a 10 year probability of a major osteoporosis related fracture = or greater than 20% or a 10 year probability of a hip fracture = or greater than 3% should be considered for treatment. For further information, including treatment recommendations, please refer to the 2013 ISCD Official Positions (http://www.iscd.org) and the NOF's Clinician's Guide to Prevention and Treatment of Osteoporosis (http://www.nof.org/professionals/clinical-guidelines) THIS IS AN ELECTRONICALLY VERIFIED FINAL REPORT 12/03/2021 2:26 PM - Electronically signed by Annette Lazcano M.D. TB: TB Report ID: [id number] Reading Location: [facility] Procedure Note TabaresAnnette MD - 12/03/2021 EXAM DESCRIPTION: DEXA AXIAL SKELETON BONE DENSITY 1 OR MORE SITES REASON FOR STUDY: 71 y/o year old F with given history ofscreening. Manager Of Corporate Communications/Model: [employer] A (S/N [id number]) CLINICAL INFORMATION: Current height: 66 inches Maximum height: 68 inches Weight: 281.2 pounds Risk factors: None COMPARISON: None available. FINDINGS: AP LUMBAR SPINE L1-L4: Total BMD is 1.327 g/cm2 T-score is 2.5 Measured BMD is thought to be spuriously elevated due to facetarthropathy. LEFT HIP: Total BMD is 0.913 g/cm2 T-score is -0.2 Femoral neck BMD is 0.814 g/cm2 T-score is -0.3 IMPRESSION: Normal REFERENCE: Bone mineral density: Normal (T-score above or = -1.0) Low bone mass (T-score between -1.0 and -2.5) replaces thepreviously used term osteopenia Osteoporosis (T-score = or below -2.5) Medical evaluation for secondary causes of low bone mineral density may be appropriate. FRAX is a World Health Organization validated fracture risk assessmenttool that calculates a person's 10 year probability of a major osteoporosisrelated fracture and hip fracture. According to the National OsteoporosisFoundation guidelines, postmenopausal women and men age 50 or older with low bonemass and a 10 year probability of a major osteoporosis related fracture = or greater than 20% or a 10 year probability of a hip fracture = or greaterthan 3% should be considered for treatment. For further information, including treatment recommendations, please referto the 2013 ISCD Official Positions (http://www.iscd.org) and the NOF's Clinician's Guide to Prevention and Treatment of Osteoporosis (http://www.nof.org/professionals/clinical-guidelines) THIS IS AN ELECTRONICALLY VERIFIED FINAL REPORT 12/03/2021 2:26 PM - Electronically signed by Annette Lazcano M.D. TB: TB Report ID: [id number] Reading Location: [facility] Madison Bowden NP IMG DXA PROCEDURES Final R esult from Last 3 Months or Most Recently Relevant to Health Maintenance Insurance ([employer]) [address] [id number] MEDICARE [facility] [place] [address] [facility] MEDICARE SUPPLEMENT Care Teams Canvas Shrinker Relationship Specialty Start Date End Date Karrie Garcia MD [address] [place] [address] [phone] PCP - General Internal Medicine 06/02/23
--- OUTSIDE RECORDS SUMMARY | 2025-08-05 10:23 | XMS_ITS | Encounter Summary ---
Author Organization [facility] Healthcare Address [address] [place] [address] Care Team Providers Care Resp Therapist Name Role Phone Karrie Garcia MD Primary Care Provider Encounter Details Date Type Department Care Team (Late st Contact Info) Description 01/22/2025 Orders Only [facility] [place] Health Information Management [address] [place] [id number] Scanning, Provider Social History Tobacco Use Types Packs/Day Years [...] points, staff should administer the PHQ-9) 0 11/12/2024 Comments No Sex and Gender Information Value Date Recorded Sex Assigned at Not on file 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 Gender Identity Not on file Sexual Orientation Not on file documented as of this encounter Plan of Treatment Not on file documented as of this encounter Procedures Procedure Name Priority Date/Time Associated Diagnosis Comments SCAN - PATHOLOGY 01/22/2025 documented in this encounter Results * SCAN - PATHOLOGY (01/22/2025) Provider Scanning Final Result documented in this encounter Visit Diagnoses Not on filedocumented in this encounter Additional Health Concerns Infection Onset Date Last Indicated Resolved Time COVID: Suspected 05/18/2025 05/18/2025 05/18/2025 10:33 AM CDT documented as of this encounter Care Teams Resp Therapist Relationship Specialty Start Date End Date Karrie Garcia MD [address] [place] [address] [phone] PCP - General Internal Medicine 06/02/23 documented as of this encounter
--- NOTE | 2025-08-05 11:15 | PC.NURSE ---
Pt taken to CT in W/C
--- NOTE | 2025-08-05 11:25 | PC.NURSE ---
Pt returned from CT
--- OUTSIDE RECORDS SUMMARY | 2025-08-05 12:04 | XMS_ITS | Clinical Summary ---
Author Organization [facility] [address] [place] [address] Care Team Providers Care Poultry Inspector Name Role Phone Karrie Garcia MD Primary Care Provider Allergies Active Allergy Reactions Criticality Noted Date Comments Penicillins Rash Medium 11/13/2021 Azithromycin Rash Medium 11/13/2021 Medications vit C,V-Pl-rwjsv-silvestre tein-zeaxan 250-90-40-1 mg capsule Take by mouth [...] Department Care Team Description 06/11/2025 9:10 AM OUTSEWER Lab [facility] Office Building [address] [place] [id number] Need for hepatitis B screening test; Abnormal blood sugar; Routine general medical examination at a health care facility; Morbid (severe) obesity due to excess calories (HCC) 06/11/2025 8:30 AM OUTSEWER Office Visit [address] [phone] Karrie Garcia MD Routine general medical examination at a health care facility (Primary Dx); Need for vaccination; Encounter for screening mammogram for malignant neoplasm of breast; Post-menopausal; Need for hepatitis B screening test; Abnormal blood sugar; Morbid (severe) obesity due to excess calories (HCC); Morbid obesity with body mass index (BMI) of 40.0 to 44.9 in adult (HCC) 06/11/2025 Results Follow-Up [address] [phone] Karrie Garcia MD Hemoglobin A1c, Lipid panel, Comprehensive metabolic panel, Additional followed-up results: 3 05/23/2025 1:30 PM CDT Office Visit [address] [phone] Madison Bowden NP Acute bronchitis due to other specified organisms (Primary Dx); Morbid obesity with BMI of 40.0-44.9, adult (HCC) 05/18/2025 10:15 AM CDT Office Visit [facility] Care at [address] [phone] Evy Del Cid PA Nasopharyngitis [...] on file Legal Sex Female 9:39 AM OUTSEWER Gender Identity Not on file Sexual Orientation Not on file Obstetrics History Para Term AB IAB SAB Ectopic Multiple Livin g Live Births 0 0 0 0 0 0 0 0 0 0 0 Last Filed Vital Signs Vital Sign Reading Time Taken Comments Blood Pressure 124/72 06/11/2025 8:35 AM OUTSEWER Pulse 75 06/11/2025 8:35 AM OUTSEWER Temperature 36.2 C (97.2 F) 06/11/2025 8:35 AM OUTSEWER Respiratory Rate 18 05/18/2025 10:08 AM CDT Oxygen Saturation 99% 06/11/2025 8:35 AM OUTSEWER Inhaled Oxygen Concentration - - Weight 121.1 kg (267 lb) 06/11/2025 8:35 AM OUTSEWER Height 167.6 cm (5' 6) 06/11/2025 8:35 AM OUTSEWER Body Mass Index 43.09 06/11/2025 8:35 AM OUTSEWER Plan of Treatment Health Maintenance Due Date [...] Diagnosis Comments EGFR Routine 06/11/2025 9:39 AM OUTSEWER Routine general medical examination at a health care facility Abnormal blood sugar DIFFERENTIAL AUTO Routine 06/11/2025 9:3 9 AM OUTSEWER Routine general medical examination at a health care facility CBC WITH AUTO DIFFERENTIAL Routine 06/11/2025 9:39 AM OUTSEWER Routine general medical examination at a [facility] care facility COMPREHENSIVE METABOLIC PANEL Routine 06/11/2025 9:39 AM OUTSEWER Routine general medical examination at a health care facility Abnormal blood sugar LIPID PANEL Routine 06/11/2025 9:39 AM OUTSEWER Routine general medical examination at a health care facility Abnormal blood sugar Morbid (severe) obesity due to excess calories (HCC) HEMOGLOBIN A1C Routine 06/11/2025 9:39 AM OUTSEWER Abnormal blood sugar HEPATITIS B CORE ANTIBODY, TOTAL Routine 06/11/2025 9:39 AM OUTSEWER Need for hepatitis B screening test HEPATITIS B SURFACE ANTIBODY (IMMUNE STATUS) Routine 06/11/2025 9:39 AM OUTSEWER Need for hepatitis B screening test HEPATITIS B SURFACE ANTIGEN Routine 06/11/2025 9:39 AM OUTSEWER Need for hepatitis B screening test POC INFLUENZA A/B, COVID-19 ANTIGEN Routine 05/18/2025 10:32 AM CDT Nasopharyngitis POCT RAPID STREP Routine 05/18/2025 10:2 4 AM CDT Nasopharyngitis STOOL DNA COLOGUARD Routine 12/10/2024 9:05 AM CDT Screening for colon cancer SCREENING MAMMOGRAM BILATERAL W CLARKE Schedule Routine, Read Routine (OP Routine) 09/06/2024 1:56 PM OUTSEWER Encounter for screening mammogram for malignant neoplasm [...] Maintenance Results * eGFR (06/11/2025 9:39 AM OUTSEWER) eGFR 85 >=60 mL/min/1. 73 m2 Comment: [...] was last reviewed 2021. Testing performed by: [address] [address] Blood 06/11/2025 9:39 AM OUTSEWER 06/11/2025 11:41 AM OUTSEWER us Karrie Garcia MD LAB BLOOD ORD ERABLES Final Result DAVID [address] [facility] [place] [address] * Differential, auto (06/11/2025 9:39 AM OUTSEWER) Neutrophil abs 3.46 1.50 - 6.50 K/cumm Comment:Testing performed by : [address] [address] Imm gran abs 0.02 0.00 - 0.10 K/cumm DAVID Comment:Testing performed by : [address] [address] Lymphocyte abs 1.22 0.80 - 3.30 K/cumm DAVID Comment:Testing performed by : [address] [address] Monocyte abs 0.71 0.20 - 0.80 K/cumm DAVID Comment:Testing performed by : [address] [address] Eosinophil abs 0.22 0.00 - 0.50 K/cumm DAVID Comment:Testing performed by : [address] [address] Basophil abs 0.05 0.00 - 0.10 K/cumm [facility] Comment:Testing performed by : [address] [address] Neutrophil pct 60.8 % [facility] Comment: Interpretive Data Percent cell count reference ranges are not reported, since discordance with absolute values may lead to misinterpretation of CBC data. Current Interpretive Data was last revised on 2017. Testing performed by: [address] [address] Imm gran pct 0.4 % [facility] Comment: Interpretive Data Percent cell count reference ranges are not reported, since discordance with absolute values may lead to misinterpretation of CBC data. Current Interpretive Data was last revised on 2017. Testing performed by: [address] [address] Lymphocyte pct 21.5 % [facility] Comment: Interpretive Data Percent cell count reference ranges are not reported, since discordance with absolute values may lead to misinterpretation of CBC data. Current Interpretive Data was last revised on 2017. Testing performed by: [address] [address] Monocyte pct 12.5 % [facility] Comment: Interpretive Data Percent cell count reference ranges are not reported, since discordance with absolute values may lead to misinterpretation of CBC data. Current Interpretive Data was last revised on 2017. Testing performed by: [address] [address] Eosinophil pct 3.9 % [facility] Comment: Interpretive Data Percent cell count reference ranges are not reported, since discordance with absolute values may lead to misinterpretation of CBC data. Current Interpretive Data was last revised on 2017. Testing performed by: [address] [address] Basophil pct 0.9 % [facility] Comment: Interpretive Data Percent cell count reference ranges are not reported, since discordance with absolute values may lead to misinterpretation of CBC data. Current Interpretive Data was last revised on 2017. Testing performed by: [address] [address] Blood 06/11/2025 9:39 AM OUTSEWER 06/11/2025 11:43 AM OUTSEWER us Karrie Garcia MD LAB BLOOD ORD ERABLES Final Result [facility] [address] [facility] [place] [address] * CBC with auto differential (06/11/2025 9:39 AM OUTSEWER) WBC 5.68 3.80 - 9.90 K/cumm Comment:Testing performed by : [address] [address] Hgb 12.8 11.9 - 15.5 g/dL DAVID Comment:Testing performed by : [address] [address] Hct 39.3 35.6 - 45.5 % DAVID Comment:Testing performed by : [address] [address] Plt 237 150 - 400 K/cumm DAVID Comment:Testing performed by : [address] [address] MPV 12.0 9.1 - 12.3 fL DAVID Comment:Testing performed by : [address] [address] RBC 4.22 3.90 - 5.20 M/cumm DAVID PORTER Comment:Testing performed by : [address] [address] MCV 93.1 81.3 - 96.4 fL DAVID Comment:Testing performed by : [address] [address] MCH 30.3 27.1 - 33.3 pg DAVID PORTER Comment:Testing performed by : [facility], [address] [place] [address]., [address] MCHC 32.6 32.3 - 35.7 g/dL DAVID PORTER Comment:Testing performed by : [address] [address] RDW CV 13.7 11.1 - 14.9 % DAVID PORTER Comment:Testing performed by : [address] [address] RDW SD 46.5 35.7 - 48.1 fL DAVID PORTER Comment:Testing performed by : [address] [address] NRBC abs 0.00 0.00 - 0.01 K/cumm DAVID PORTER Comment:Testing performed by : [address] [address] Blood 06/11/2025 9:39 AM OUTSEWER 06/11/2025 11:43 AM OUTSEWER us Karrie Garcia MD LAB BLOOD ORD ERABLES Final Result Performing Organization Address City/[facility]/ZIP Co de Phone Number DAVID [facility] [place] [address] * Hepatitis B core antibody, total Blood (06/11/2025 9:39 AM OUTSEWER) Hep B core IgG/IgM Nonreactive Nonreactive Comment:Testing performed by : [facility], [address] [facility]., [address] Blood 06/11/2025 9:39 AM OUTSEWER 06/11/2025 1:31 PM OUTSEWER Karrie Garcia MD LAB M ICROBIOLOGY - GENERAL ORDERABLES Final Result DAVID [address] [facility] [place] [address] * Hepatitis B surface antibody (immune status) Blood (06/11/2025 9:39 AM OUTSEWER) HBsAb (immune status) Nonreactive Comment: Interpretive Data [...] revised on 19. Blood 06/11/2025 9:39 AM OUTSEWER 06/11/2025 12:25 PM OUTSEWER Karrie Garcia MD LAB M ICROBIOLOGY - GENERAL ORDERABLES Final Result Performing Organization Address [facility] Co de Phone Number [address] [place] [employer] [address] * Hepatitis B Surface Antigen Blood (06/11/2025 9:39 AM OUTSEWER) [facility] HepBsAg Nonreactive Nonreactive Blood 06/11/2025 9:39 AM OUTSEWER 06/11/2025 12:25 PM OUTSEWER Karrie Garcia MD LAB M [facility] - GENERAL ORDERABLES Final Result Performing Organization Address [facility] Co de Phone Number [address] [address] * (ABNORMAL) Hemoglobin A1c (06/11/2025 9:39 AM OUTSEWER) [facility] Hgb A1C 5.8(H) 4.0 - 5.6 % Comment:Testing performed by : [facility], [address] [place] [address]., [address] Estimated Average Glucose 120 mg/dL DAVID Comment: The ADA recommends reporting an estimated Average Glucose (eAG) with all Hemoglobin A1c results using the equation derived from a study of 507 normal and diabetic adults. Minority populations were underrepresented and children were not included. (Diabetes Care 31:7560-7326, 2008). The eAG is not equivalent to a fasting glucose. Testing performed by: [address] [address] Blood 06/11/2025 9:39 AM OUTSEWER 06/11/2025 11:43 AM OUTSEWER us Karrie Garcia MD LAB BLOOD ORD ERABLES Final Result DAVID [address] [facility] [place] [address] * Lipid panel (06/11/2025 9:39 AM OUTSEWER) Cholesterol 185 30 - 199 mg/dL Comment: [...] last revised on 2018. Testing performed by: [address] [address] Triglycerides 102 <=149 mg/dL DAVID PORTER Comment: [...] last revised on 2018. Testing performed by: [address] [address] HDL 59 >=40 mg/dL DAVID Comment: Interpretive [...] last revised on 2018. Testing performed by: [address] [address] LDL, calculated 108 <=129 mg/dL DAVID Comment: [...] last revised on 2024. Testing performed by: [address] [address] Non-HDL Cholesterol 126 mg/dL DAVID Comment: Interpretive [...] last revised on 2018. Testing performed by: [address] [address] Chol/HDL ratio 3 DAVID Comment:Testing performed by : [address] [address] Blood 06/11/2025 9:39 AM OUTSEWER 06/11/2025 11:41 AM OUTSEWER us Karrie Garcia MD LAB BLOOD ORD ERABLES Final Result DAVID [address] [facility] [place] [address] * Comprehensive metabolic panel (06/11/2025 9:39 AM OUTSEWER) Sodium 140 135 - 145 mmol/L Comment:Testing performed by : [address] [address] Potassium, pl 4.4 3.3 - 4.9 mmol/L DAVID Comment:Testing performed by : [address] [address] Chloride 105 97 - 110 mmol/L DAVID Comment:Testing performed by : [address] [address] CO2 27 22 - 32 mmol/L DAVID Comment:Testing performed by : [address] [address] Anion gap 8 2 - 15 mmol/L DAVID Comment:Testing performed by : [address] [address] BUN 20 6 - 25 mg/dL DAVID Comment:Testing performed by : [address] [address] Creatinine 0.74 0.60 - 1.10 mg/dL DAVID Comment:Testing performed by : [address] [address] Glucose 102 70 - 199 mg/dL DAVID [...] was last revised 2022. Testing performed by: [address] [address] Calcium 9.5 8.5 - 10.3 mg/dL DAVID Comment:Testing performed by : [address] [address] Bilirubin, total 0.4 0.1 - 1.2 mg/dL DAVID Comment:Testing performed by : [address] [address] Protein, pl 6.7 6.5 - 8.5 g/dL DAVID Comment:Testing performed by : [address] [address] Albumin 3.7 3.5 - 5.0 g/dL DAVID Comment:Testing performed by : [address] [address] Alk phos 87 40 - 130 Units/L DAVID Comment:Testing performed by : [address] [address] ALT 15 7 - 45 Units/L DAVID Comment:Testing performed by : [address] [address] AST 30 10 - 45 Units/L DAVID Comment:Testing performed by : [address] [address] Blood 06/11/2025 9:39 AM OUTSEWER 06/11/2025 11:41 AM OUTSEWER us Karrie Garcia MD LAB BLOOD ORD ERABLES Final Result DAVID [address] [facility] Department [place] [address] * POC Influenza A/B, COVID-19 antigen (05/18/2025 10:32 AM CDT) Influenza A Ag, POC Negative Negative [facility] Influenza B Ag, POC Negative Negative [facility] COVID-19 Ag POC Presumptive Negative Presumptive Negative, Invalid [facility] Nasal 05/18/2025 10:3 2 AM CDT Evy MURRAY POINT OF CARE TEST ORDER PATRICK Final Result Performing Organization Address City/[facility]/ZIP Co de Phone Number [facility] [address] [place] [address] * POCT rapid strep A (05/18/2025 10:24 AM CDT) Pathologist [facility] Rapid Strep A, POC Negative Negative Swab 05/18/2025 10:2 4 AM CDT Evy MURRAY POINT OF CARE TEST ORDER PATRICK Final Result * (ABNORMAL) Stool DNA - Cologuard (12/10/2024 9:05 AM CDT) Pathologist [facility] Stool DNA - Cologuard Positive( A) Negative [employer] (CLIA #:[id number]) Comment: The Cologuard Plus (TM) test was performed on this specimen. POSITIVE TEST RESULT. A positive (abnormal) Cologuard Plus result means the patient has a ermovt-aoqz-xtalhkl chance of having colorectal cancer (CRC) or [...] a 91% specificity (Cologuard Plus Clinician Brochure. [email or web address]. [place], [place].). Visit [email or web address] for more test information, references, warnings, and precautions. Stool 12/10/2024 9:05 AM CDT 12/11/2024 9:31 AM CDT us Madison Bowden NP LAB BODY FLUIDS AND STOOLS ORDERABLES Final Result [employer] (CLIA #:[id number]) [address] [address] * Screening Mammogram Bilateral W Clarke (09/06/2024 1:56 PM OUTSEWER) Anatomical Region Laterality Modality Breast Bilateral Mammography Impressions 09/06/2024 2:06 PM OUTSEWER BI-RADS ATLAS category (overall): 1 - Negative There is no mammographic evidence of malignancy. A 1 year screening mammogram is recommended. The patient has been or will be contacted. We recommend annual screening mammography for women at average risk of breast cancer beginning at age 40, based on guidelines of the [place] [employer] (ACR Practice Parameter for the Performance of Screening and Diagnostic Mammography) and [place] [employer]. For women with and elevated risk of breast cancer, please refer to the ACR Practice Parameter for specific screening recommendations. The patient will be entered into a reminder system with a target due date of 1 year for her next screening exam. Narrative 09/06/2024 2:06 PM OUTSEWER Screening Mammogram Bilateral W Clarke: 09/06/24 The [...] Final Result Performing Organization Address City/State/ZIP Co in Phone Number DAVID [address] [facility] Department [place] [place] [address] * Dexa Axial Skeleton Bone Density 1 or 2 Site (12/03/2021 1:45 PM CDT) Anatomical Region Laterality Modality Body N/A Mammography 12/03/2021 2:26 PM CDT Narrative 12/03/2021 2:26 PM CDT EXAM DESCRIPTION: DEXA AXIAL SKELETON BONE DENSITY 1 OR MORE SITES REASON FOR STUDY: 71 y/o year old F with given history of screening. Community Educator/Model: Tynker A (S/N [id number]) CLINICAL INFORMATION: Current height: 66 inches Maximum [...] Annette Lazcano M.D. TB: TB Report ID: [id number] Reading Location: [facility] Procedure Note TabaresAnnette MD - 12/03/2021 EXAM DESCRIPTION: DEXA AXIAL SKELETON BONE DENSITY 1 OR MORE SITES REASON FOR STUDY: 71 y/o year old F with given history ofscreening. Community Educator/Model: Tynker A (S/N [id number]) CLINICAL INFORMATION: Current height: 66 inches Maximum [...] Annette Lazcano M.D. TB: TB Report ID: [id number] Reading Location: [facility] Madison Bowden NP IMG DXA PROCEDURES Final R esult from Last 3 Months or Most Recently Relevant to Health Maintenance Insurance ([place]) [address] [address] MEDICARE [facility] MEDICARE [facility] MEDICARE SUPPLEMENT Care Teams Poultry Inspector Relationship Specialty Start Date End Date Karrie Garcia MD [address] [place] [address] [phone] PCP - General Internal Medicine 06/02/23
--- OUTSIDE RECORDS SUMMARY | 2025-08-05 12:04 | XMS_ITS | Clinical Summary ---
Author Organization [facility] Address [facility] [place] [address] Care Team Providers Care Solar Electric Practitioner Name Role Phone Unavailable Primary Care Provider [...] topic Meningococcal Vaccine Aged Out No isidro rosita eligible based on patient's age to complete this topic RSV Immunizations Under 20 Months Aged Out No longer eligible b ased on patient's age to complete this topic
--- OUTSIDE RECORDS SUMMARY | 2025-08-05 12:04 | XMS_ITS | Encounter Summary ---
Author Organization [facility] Healthcare Address [address] [place] [address] Care Team Providers Care Hosiery Knitter Name Role Phone Karrie Garcia MD Primary Care Provider Encounter Details Date Type Department Care Team (Late st Contact Info) Description 06/11/2025 Results Follow-Up [facility] Primary Care [address] [place] [phone] Karrie Garcia MD [address] [place] [address] [phone] Hemoglobin A1c, Lipid panel, Comprehensive metabolic panel, [...] on file Legal Sex Female 9:39 AM SHELVER Gender Identity Not on file Sexual Orientation Not on file documented as of this encounter Plan of Treatment Not on file documented as of this encounter Visit Diagnoses Not on filedocumented in this encounter Care Teams Hosiery Knitter Relationship Specialty Start Date End Date Karrie Garcia MD [address] [place] [address] [phone] PCP - General Internal Medicine 06/02/23 documented as of this encounter
--- OUTSIDE RECORDS SUMMARY | 2025-08-05 12:04 | XMS_ITS | Encounter Summary ---
Author Organization [facility] Healthcare Address [address] [place] [address] Care Team Providers Care Logging Shovel Operator Name Role Phone Karrie Garcia MD Primary Care Provider Encounter Details Date Type Department Care Team (Late st Contact Info) Description 01/22/2025 Orders Only [facility] Health Information Management [address] [place] [id number] Scanning, Provider Social History Tobacco Use Types [...] on file Legal Sex Female 9:39 AM SENIOR PROJECT COORDINATOR Gender Identity Not on file Sexual Orientation [...] documented as of this encounter Care Teams Logging Shovel Operator Relationship Specialty Start Date End Date Karrie Garcia MD [address] [place] [address] [phone] PCP - General Internal Medicine 06/02/23 documented as of this encounter
[2025-08-05] MEDS: ACETAMINOPHEN 500 MG TABLET 1000 MG PO (12:22)
[2025-08-05] MEDS: traMADol HCL (*CRX) 25 MG TABLET PO (12:22)
--- NOTE | 2025-08-05 12:28 | ED_ITS ---
HPI - Fall General Chief Complaint: Fall Stated Complaint: FALL Time Seen by Provider: 08/05/25 10:55 Source: patient Mode of arrival: ambulatory Limitations: no limitations History of Present Illness HPI Narrative: Patient is a 75-year-old female who presents the ED with report of a fall. Patient reports she was walking her dog this morning when her dog ran off additionally in the opposite direction. She attempted to hold onto lesion fell forward. Hit her head on the ground. Sustained abrasions to her left forehead, left upper lip. Sustained laceration to inner upper lip. Did not lose consciousness. Denies dizziness, lightheadedness, vision changes, nausea. Denies malocclusion. Denies significant neck or back pain or any other injuries from the fall. Tetanus is up-to-date. Related Data Home Medications ?Medication ?Instructions ?Recorded ?Confirmed ?Last Taken ?Type montelukast 10 mg tablet 10 mg PO DAILY 11/07/24 1011/30 Unknown History zgdanxtp-dnm-snwan acid 0.4 1 tablet PO DAILY 11/07/24 05/11/25 Unknown History mg-lycopene 300 mcg-lutein 250 mcg tablet (Centrum Silver) propylene glycol 0.6 % eye drops 1 drp EACH EYE DAILY PRN 11/07/24 05/11/25 Unknown History (Systane Complete) vitamins A,C,X-kztv-dmdzhb 4,296 1 cap PO BID 11/07/24 05/11/25 Unknown History mcg-226 mg-90 mg capsule (PreserVision AREDS) Allergies Allergy/AdvReac Type Severity Reaction Status Date / Time azithromycin Allergy Severe RASH Verified 08/05/25 11:20 Penicillins Allergy Severe RASH Verified 08/05/25 11:20 Review of Systems Review of Systems: All systems reviewed & are unremarkable except as noted in HPI. All systems reviewed & are unremarkable except as noted in HPI and below PMFSH Surgical History Surgical History History of right knee surgery Social History Social History Smoking status: Never smoker Alcohol intake: current Alcohol use details: Sometimes Substance use: never Current Housing: Decline to Answer Concerned About Future Housing: Decline to Answer Difficulty Paying Gas/Electric Bills: Decline to Answer Difficulty Paying for Meds: Decline to Answer Currently Unemployed: Decline to Answer Education: Decline to Answer Difficulty w/ Childcare or Family Care: Decline to Answer Exam Narrative: GENERAL: Well appearing, obese with BMI of 43.9, non-toxic, in no acute distress. HEAD: Normocephalic. Abrasions/brusing/contusion to L forehead/L periorbital region. EYES: PERRL/EOMI, conjunctiva clear ENT: Superficial laceration to L upper lip. Small laceration to L upper inner lip, slightly gaping in nature, no significant active bleeding. Does appear to extend to external laceration. No malocclusion or trismus. RESPIRATORY: Airway patent, respirations nonlabored. Clear to auscultation bilaterally, no rales, rhonchi, wheezing. CARDIOVASCULAR: Regular rate and rhythm without murmurs, rubs, or gallops. MUSCULOSKELETAL: Moves all extremities. No gross deformities. No significant C/T/L midline spinal tenderness SKIN: Warm, dry, normal color. NEURO: A&O X3. Speech clear. Cranial nerves II-XII grossly intact. Steady gait. No ataxic movements. PSYCHIATRIC: Appropriate mood and affect. Normal interaction. Course Vital Signs Vital signs: Vital Signs Temperature 98.6 F 08/05/25 10:06 Pulse Rate 67 08/05/25 10:06 Respiratory Rate 20 08/05/25 10:06 Blood Pressure 129/82 08/05/25 10:06 Pulse Oximetry 100 08/05/25 10:06 Oxygen Delivery Room Air 08/05/25 10:06 Temperature 98.6 F 08/05/25 10:06 Pulse Rate 64 08/05/25 13:09 Respiratory Rate 18 08/05/25 13:09 Blood Pressure 142/80 H 08/05/25 13:09 Pulse Oximetry 98 08/05/25 13:09 Oxygen Delivery Room Air 08/05/25 10:06 Procedures Laceration Laceration 1: Date: 08/05/25 Time: 12:52 Site: lip Side (If applicable): left Size (cm): 0.25 Description: irregular Depth: simple, single layer Local Anesthetic: lidocaine 1% Amount of anesthesia used (mL): 1 Pre-repair: wound explored and irrigated ====== Skin Level ====== Skin layer closed with: other (fast absorbing gut) Size (cm): 5-0 Number of sutures: 1 Technique: simple, interrupted ====== Subcutaneous Layer ====== ====== Muscle Layer ====== ====== Tendon Layer ====== [facility] MDM Narrative Medical decision making narrative: CT of brain and cervical spine without acute traumatic findings. Does show: Left periorbital and preseptal soft tissue swelling likely secondary to post traumatic contusion. She denies any vision changes or pain with eye movements. No evidence of entrapment. Laceration to inner lip was repaired with 1 absorbable suture without complications. External lip laceration very superficial, did not require repair, does not gape open. Lacerations are through and through however. Will place oral antibiotics for prophylactic infection coverage. Patient otherwise safe for discharge home at this time. Advised will likely be sore over the next few days. Discussed management of such, recommended frequent icing. Discussed close follow-up with PCP. Given return precautions. Discharged in stable condition Differential Diagnosis Differential Diagnosis: Contusion, hematoma, intracranial bleeding, skull fracture, facial bone fracture, laceration Medical Records I have reviewed the following patient records and this information was taken into consideration when formulating the assessment and plan.: previous labs, previous ER visits, previous hospitalizations and previous clinic visits Imaging Data Attestation: I personally reviewed and interpreted this imaging study as follows: Radiologist's impression: ITS Impressions Head CT 08/05/25 11:30 IMPRESSION: 1. Left periorbital and preseptal soft tissue swelling likely secondary to post traumatic contusion. No fracture or acute intracranial process. 2. Mild scattered nonspecific white matter hypoattenuation consistent with chronic small vessel ischemic disease. Cervical Spine CT 08/05/25 11:39 IMPRESSION: 1. No fracture. 2. Mild cervical spondylosis. Discharge Plan Discharge Clinical Impression: Fall from ground level Closed head injury Qualifiers: Encounter type: initial encounter Qualified Code(s): S09.90XA - Unspecified injury of head, initial encounter Laceration of lip Qualifiers: Encounter type: initial encounter Qualified Code(s): S01.511A - Laceration without foreign body of lip, initial encounter Periorbital contusion of left eye Qualifiers: Encounter type: initial encounter Qualified Code(s): S05.12XA - Contusion of eyeball and orbital tissues, left eye, initial encounter Patient Disposition: Home Condition: Stable Instructions: Antibiotic Form, Laceration (ED), Head Injury (ED), Care For Your Absorbable Stitches (ED) Additional Instructions: Recommend frequent icing to face, Tylenol as needed for pain. The stitch in your lip will dissolve on its own. Follow-up with your primary care doctor for further evaluation if needed. Return to ED if you experience recurrent fall or injury, severe pain, dizziness, passing out, unable to keep down food or drink, vision changes, or any other symptoms of concern. Patient Language: Romansh Prescriptions: New cephalexin 500 mg capsule 500 mg PO Q12H 7 Days Qty: 14 0RF No Action montelukast 10 mg tablet 10 mg PO DAILY PreserVision AREDS 4,296 mcg-226 mg-90 mg capsule 1 cap PO BID Centrum Silver 0.4 mg-300 mcg- 250 mcg tablet 1 tablet PO DAILY Systane Complete 0.6 % drops 1 drp EACH EYE DAILY PRN Follow-up/Referrals: Jose,Karrie Chiu MD [Primary Care Provider, Internal Medicine] Time of Disposition: 12:51
[2025-08-05 13:09] VITALS: BP 142/80; PULSE 64; RESP 18; O2SAT 98
== END 2025-08-05 13:13 | disposition home or self-care (01) ==
PROVIDERS: Emergency Provider Physician Assistant; PCP Internal Medicine
DX: S01.511A Laceration without foreign body of lip, initial encounter (principal); S09.90XA Unspecified injury of head, initial encounter; S05.12XA Contusion of eyeball and orbital tissues, left eye, initial encounter; W01.0XXA Fall on same level from slipping, tripping and stumbling without subsequent striking against object, initial encounter
CPT/HCPCS: 12011; 70450; 72125; 99284; A9270